=== PATIENT | female | born 1960 | race Caucasian/White ===

== ENCOUNTER 2017-03-26 06:48 | Day surgery (SDC) | payer BC ==
[~2017-03-26 06:48] MED LIST: Lactated Ringers 1,000 ML IV SCH; Lidocaine 1%/Sod Bicarbonate in NS 8.4% 1 ML Syringe PRN; Sodium Chloride 0.9% 10 ML Syringe FLUSH PRN
--- NOTE | 2017-03-26 07:31 | PCM.PREANE ---
Preanesthetic Assessment - Anesthesia/Transfusion/Family Hx Anesthesia History: Prior Anesthesia Without Reaction Family History of Anesthesia Reaction: No Transfusion History: No Prior Transfusion(s) - Review of Systems General: No Symptoms Pulmonary: No Symptoms Cardiovascular: No Symptoms Gastrointestinal: No Symptoms Neurological: No Symptoms Other: Reports: None - Physical Assessment NPO Status Date: 03/25/17 NPO Status Time: 23:00 Pulse: 54 O2 Sat by Pulse Oximetry: 99 Respiratory Rate: 16 Blood Pressure: 139/74 Temperature: 97.8 C Vital Signs: Last Vital Signs Temp 36.6 C 03/26/17 07:00 Pulse 54 L 03/26/17 07:00 Resp 16 03/26/17 07:00 BP 139/74 03/26/17 07:00 Pulse Ox 99 03/26/17 07:00 Height: 1.63 m Weight: 58.967 kg ASA Class: 1 Mental Status: Alert & Oriented x3 Airway Class: Mallampati = 1 Dentition: Reports: Normal Dentition Thyro-Mental Finger Breadths: 3 Mouth Opening Finger Breadths: 3 ROM/Head Extension: Full Lungs: Clear to Auscultation, Normal Respiratory Effort, Crackles Cardiovascular: Regular Rate, Regular Rhythm - Allergies Allergies/Adverse Reactions: Allergies Allergy/AdvReac Type Severity Reaction Status Date / Time Cephalosporins Allergy Swelling Verified 03/25/17 15:47 ciprofloxacin [From Cipro] Allergy Swelling Verified 03/25/17 15:47 ciprofloxacin HCl Allergy Swelling Verified 03/25/17 15:47 [From Cipro] nitrofurantoin Allergy Swelling Verified 03/25/17 15:47 [From Macrobid] nitrofurantoin Allergy Swelling Verified 03/25/17 15:47 macrocrystalline [From Macrobid] Sulfa (Sulfonamide Allergy Swelling Verified 03/25/17 15:47 Antibiotics) - Anesthesia Plan Pre-Op Medication Ordered: None - Acknowledgements Anesthesia Type Planned: MAC Pt an Appropriate Candidate for the Planned Anesthesia: Yes Alternatives and Risks of Anesthesia Discussed w Pt/Guardian: Yes Pt/Guardian Understands and Agrees with Anesthesia Plan: Yes PreAnesthesia Questionnaire HEENT History: Reports: Impaired Vision Gastrointestinal History: Reports: None Genitourinary History: Reports: Urinary Incontinence, UTI, Recurrent 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: Reports: Spontaneous Musculoskeletal History: Reports: Arthritis Other Musculoskeletal History: right upper arm pain Neurological History: Reports: None Psychiatric History: Reports: Depression Endocrine/Metabolic History: Reports: None Hematologic History: Reports: None Immunologic History: Reports: None Oncologic (Cancer) History: Reports: None Dermatologic History: Reports: None - Past Surgical History Head Surgeries/Procedures: Reports: None HEENT Surgical History: Reports: Tonsillectomy Cardiovascular Surgical History: Reports: None Respiratory Surgical History: Reports: None GI Surgical History: Reports: Hernia Repair/Other Female Surgical History: Reports: D&C Endocrine Surgical History: Reports: None Neurological Surgical History: Reports: None Musculoskeletal Surgical History: Reports: Arthroscopic Procedure ((L) knee), Other (See Below) Other Musculoskeletal Surgeries/Procedures:: Left knee arthroscopy Oncologic Surgical History: Reports: None Dermatological Surgical History: Reports: None - SUBSTANCE USE Smoking Status *Q: Never Smoker Recreational Drug Use History: No - HOME MEDS Home Medications: Home Meds Ascorbate Calcium [Vitamin C] 500 mg PO DAILY 03/25/17 [History] Biotin 5 mg PO DAILY 03/25/17 [History] Black Cohosh 40 mg PO BID 03/25/17 [History] Calcium Carbonate [Calcium] 1,200 mg PO DAILY 03/25/17 [History] Cholecalciferol (Vitamin D3) [Vitamin D3] 2,000 unit PO DAILY 03/25/17 [History] Cranberry 400 mg PO DAILY 03/25/17 [History] Estrogens, Conjugated [Premarin Vaginal Crm] 1 applic VAG WEEKLY 03/25/17 [ History] Glucosam/Chond/Hyalu/Cf Borate [Move Free Joint Health Tablet] 1 tab PO DAILY [History] MV,Ca,Min/FA/Herbal No.157 [Estroven Max Strength Caplet] 400 mcg PO DAILY 03/25 [History] Multivitamin with Minerals [Multiple Vitamin] 1 tab PO DAILY 03/25/17 [History] [place]-3/DHA/Epa/Fish Oil [[place] 3 500 Softgel] 1 cap PO DAILY 03/25/17 [History] - CURRENT (IN HOUSE) MEDS Current Meds: Current Medications Lactated Ringer's (Ringers, Lactated) 1,000 mls @ 125 mls/hr IV ASDIRECTED ANDREW Stop: 03/26/17 23:00 Last Admin: 03/26/17 07:15 Dose: 125 mls/hr Lidocaine/Sodium Bicarbonate (Buffered Lidocaine 1% In Ns 8.4%) 0.25 ml .XX ONETIME PRN PRN Reason: Prior to IV Start Stop: 03/26/17 18:00 Last Admin: 03/26/17 07:15 Dose: 0.25 ml Sodium Chloride (Saline Flush) 10 ml FLUSH ASDIRECTED PRN PRN Reason: Keep Vein Open Stop: 03/26/17 18:00 Discontinued Medications Propofol (Diprivan 20 Ml) Confirm Administered Dose 200 mg .ROUTE .STK-MED ONE Stop: 03/26/17 07:35
[2017-03-26] MEDS ORDERED: Propofol 200 MG/20 ML SDV ONE (07:34)
--- NOTE | 2017-03-26 08:02 | PCM.OPNOTE ---
- General Post-Op/Procedure Note Date of Surgery/Procedure: 03/26/17 Operative Procedure(s): Colonoscopy with cold forceps descending colonic polypectomy 1 Findings: 1. Perianal skin tags 2. Internal hemorrhoids 3. Sigmoid diverticulosis 4. Diminutive polyp at 60 cm from the anal verge Pre Op Diagnosis: Screening colonoscopy Post-Op Diagnosis: 1. Perianal skin tags. 2. Internal hemorrhoids. 3. Sigmoid diverticulosis. 4. Diminutive polyp at 60 cm from the anal verge Anesthesia Technique: MAC, Moderate Sedation Primary Surgeon: Raymundo Mcdonald Pathology: Diminutive polyp EBL in mLs: 0 Complications: None Condition: Good Free Text/Narrative:: After adequate IV sedation and analgesia was obtained with monitoring the patient was placed on her left side. Perianal inspection revealed anal tags with internal hemorrhoids. Digital rectal examination was otherwise unremarkable. A lubricated colonoscope was inserted into the rectum and advanced to the cecum without difficulty. The bowel preparation was excellent. The cecum right colon transverse and descending colons were all remarkable for one 5 mm polyp at 60 cm in the descending colon. These areas are otherwise unremarkable for inflammatory changes or mass lesions. I used the cold forceps to remove the polyp which was captured and sent to pathology. The distal descending colon and sigmoid colon were remarkable for a few scattered diverticuli. The rectum in both views was unremarkable. I did see the uncomplicated internal hemorrhoids. Photographs taken for the patient and for the medical record. Air was removed as I finished the procedure which she tolerated well. There were no procedural complications.
--- NOTE | 2017-03-26 08:05 | PCM48HPAN ---
Post Anesthesia Note - EVALUATION WITHIN 48HRS OF ANESTHETIC Vital Signs in Normal Range: Yes Patient Participated in Evaluation: Yes Respiratory Function Stable: Yes Airway Patent: Yes Cardiovascular Function Stable: Yes Hydration Status Stable: Yes Pain Control Satisfactory: Yes Nausea and Vomiting Control Satisfactory: Yes Mental Status Recovered: Yes - COMMENTS/OBSERVATIONS Free Text/Narrative:: Pt awake, rests quietly, no c/o
[2017-03-26 08:09] VITALS: BP 138/83
== END 2017-03-26 08:50 | disposition home or self-care (01) ==
LOC: JD.SDS 06:48
PROVIDERS: ATTEND Surgery
DX: Z12.11 Encounter for screening for malignant neoplasm of colon (principal); K63.5 Polyp of colon; K57.30 Diverticulosis of large intestine without perforation or abscess without bleeding; K64.4 Residual hemorrhoidal skin tags; K64.8 Other hemorrhoids; M19.90 Unspecified osteoarthritis, unspecified site; Z87.440 Personal history of urinary (tract) infections; Z88.1 Allergy status to other antibiotic agents; Z88.2 Allergy status to sulfonamides; Z79.899 Other long term (current) drug therapy; Z90.89 Acquired absence of other organs; Z98.890 Other specified postprocedural states
CPT/HCPCS: 45380; J7120; 00810; J2704

== ENCOUNTER 2021-06-07 18:12 | Emergency (ER) | payer BC ==
[2021-06-07 19:00] VITALS: BP 185/100; PULSE 67
--- NOTE | 2021-06-07 19:15 | EDM.PDOC ---
<Raymundo Alejandro - Last Filed: 06/07/21 19:09> ED HPI GENERAL MEDICAL PROBLEM - General Chief Complaint: General Stated Complaint: NAUSEA/NECK PAIN Time Seen by Provider: 06/07/21 19:08 - Related Data Allergies Allergy/AdvReac Type Severity Reaction Status Date / Time Cephalosporins Allergy Swelling Verified 03/25/17 15:47 ciprofloxacin [From Cipro] Allergy Swelling Verified 03/25/17 15:47 ciprofloxacin HCl Allergy Swelling Verified 03/25/17 15:47 [From Cipro] nitrofurantoin Allergy Swelling Verified 03/25/17 15:47 [From Macrobid] nitrofurantoin Allergy Swelling Verified 03/25/17 15:47 macrocrystalline [From Macrobid] Sulfa (Sulfonamide Allergy Swelling Verified 03/25/17 15:47 Antibiotics) Home Meds: Home Meds Ascorbate Calcium [Vitamin C] 500 mg PO DAILY 03/25/17 [History] Biotin 5 mg PO DAILY 03/25/17 [History] Black Cohosh 40 mg PO BID 03/25/17 [History] Calcium Carbonate [Calcium] 1,200 mg PO DAILY 03/25/17 [History] Cholecalciferol (Vitamin D3) [Vitamin D3] 2,000 unit PO DAILY 03/25/17 [History] Cranberry 400 mg PO DAILY 03/25/17 [History] Estrogens, Conjugated [Premarin Vaginal Crm] 1 applic VAG WEEKLY 03/25/17 [History] Glucosam/Chond/Hyalu/Cf Borate [Move Free Joint Health Tablet] 1 tab PO DAILY 03/25/17 [History] MV,Ca,Min/FA/Herbal No.157 [Estroven Max Strength Caplet] 400 mcg PO DAILY 12/04 [History] Multivitamin with Minerals [Multiple Vitamin] 1 tab PO DAILY 03/25/17 [History] [place]-3/DHA/Epa/Fish Oil [[place] 3 500 Softgel] 1 cap PO DAILY 03/25/17 [History] Ondansetron [Zofran ODT] 4 mg PO Q6H PRN #20 tab.dis 06/07/21 [Rx] Past Medical History HEENT History: Reports: Impaired Vision Cardiovascular History: Reports: None Respiratory History: Reports: None Gastrointestinal History: Reports: None Genitourinary History: Reports: Urinary Incontinence, UTI, Recurrent 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 Musculoskeletal History: Reports: Arthritis Other Musculoskeletal History: right upper arm pain Neurological History: Reports: None Psychiatric History: Reports: Depression Endocrine/Metabolic History: Reports: None Hematologic History: Reports: None Immunologic History: Reports: None Oncologic (Cancer) History: Reports: None Dermatologic History: Reports: None - Past Surgical History Head Surgeries/Procedures: Reports: None HEENT Surgical History: Reports: Tonsillectomy Cardiovascular Surgical History: Reports: None Respiratory Surgical History: Reports: None GI Surgical History: Reports: Hernia Repair/Other Female Surgical History: Reports: D&C Endocrine Surgical History: Reports: None Neurological Surgical History: Reports: None Musculoskeletal Surgical History: Reports: Arthroscopic Procedure ((L) knee), Other (See Below) Other Musculoskeletal Surgeries/Procedures:: Left knee arthroscopy Oncologic Surgical History: Reports: None Dermatological Surgical History: Reports: None Social & Family History - Caffeine Use Caffeine Use: Reports: None Departure - Departure Disposition: Home, Self-Care 01 Clinical Impression: COVID-19 - Discharge Information Prescriptions: Ondansetron [Zofran ODT] 4 mg PO Q6H PRN #20 tab.dis PRN Reason: Nausea/Vomiting Referrals: PCP,None [Primary Care Provider] - Forms: ED Department Discharge Additional Instructions: You were seen in the emergency department this evening with worsening Covid symptoms. Lab studies were completed and were essentially unremarkable. You did not appear dehydrated. Chest x-ray was unremarkable. You did receive a liter of IV fluids as well as nausea medication and pain medication. Recommend that you go home and rest and drink plenty of fluids. Eat small frequent meals. Take the Zofran tab for nausea every [address] the tablet under your tongue and allow it to dissolve and then wait approximately 30 minutes prior to eating or drinking. Also recommend that you take ibuprofen 600 mg every 6-8 hours as needed for body aches or headache. Be sure to take this medication with food as it can cause stomach upset. Recommend follow-up with your primary care provider in about 1 week for reevaluation. Sepsis Event Note (ED) - Evaluation Sepsis Screening Result: No Definite Risk <Arya Garza - Last Filed: 06/07/21 22:17> ED HPI GENERAL MEDICAL PROBLEM - General Source of Information: Reports: Patient History Limitations: Reports: No Limitations - History of Present Illness INITIAL COMMENTS - FREE TEXT/NARRATIVE: 60-year-old female appears the emergency department with lingering Covid symptoms. Patient states she developed Covid type symptoms on May 22, 2021. She states she had generalized body aches, fever, chills, nausea, vomiting and diarrhea. She also complains of headache, shortness of breath and cough associated with it. She states she never actually went to get tested because her had similar symptoms and did test positive for Covid. She states he came off of quarantine yesterday. She states symptoms are slowly resolving however she has still had nausea, vomiting and a severe headache located at the base of her skull. She states she has been taking Tylenol to abort the headache however is having a difficult time keeping it down due to the nausea and vomiting. She states she saw her chiropractor today and he did adjust her neck however it has not helped at all. Patient states she is otherwise healthy. She has not had her Covid vaccine. ED ROS GENERAL - Review of Systems Review Of Systems: Comprehensive ROS is negative, except as noted in HPI. ED EXAM, GENERAL - Physical Exam Exam: See Below Exam Limited By: No Limitations General Appearance: Alert, WD/WN, Mild Distress Ears: Normal External Exam, Hearing Grossly Normal Nose: Normal Inspection Throat/Mouth: Normal Inspection, Normal Lips, Normal Voice, No Airway Compromise Head: Atraumatic, Normocephalic Neck: Normal Inspection, Supple, Non-Tender, Full Range of Motion Respiratory/Chest: No Respiratory Distress, Lungs Clear, Normal Breath Sounds, No Accessory Muscle Use, Chest Non-Tender Cardiovascular: Normal Peripheral Pulses, Regular Rate, Rhythm, No Edema, No Murmur Peripheral Pulses: 2+: Radial (L), Radial (R) GI/Abdominal: Normal Bowel Sounds, Soft, Non-Tender, No Distention (Female) Exam: Deferred Rectal (Female) Exam: Deferred Back Exam: Normal Inspection Extremities: Normal Inspection, Normal Range of Motion, Non-Tender, No Pedal Edema, Normal Capillary Refill Neurological: Alert, Oriented, Normal Cognition Psychiatric: Normal Affect, Normal Mood Skin Exam: Warm, Dry, Intact, Normal Color, No Rash Lymphatic: No Adenopathy Course - Vital Signs Text/Narrative:: As noted above, patient presents with lingering Covid-like symptoms. Lungs are slightly diminished on physical exam. Abdomen is soft and nontender bowel tones are positive. Patient is hemodynamically stable and O2 saturations are 97% on room air. Will obtain lab studies to include a CBC, CMP, magnesium, D-dimer and a C-reactive protein. We will also obtain a chest x-ray. Patient will be given 1 L of normal saline due to the fact that she states she has been unable to keep any food or fluids down, Zofran and Toradol. Last Recorded V/S: Last Vital Signs Temp 98.1 F 06/07/21 18:49 Pulse 67 06/07/21 18:49 Resp 16 06/07/21 18:49 BP 185/100 H 06/07/21 18:49 Pulse Ox 97 06/07/21 18:49 - Orders/Labs/Meds Orders: Active Orders 24 hr Category Date Time Status Chest 1V Frontal [CR] Stat Exams 06/07/21 19:28 Taken Sodium Chloride 0.9% [Saline Flush] Med 06/07/21 19:28 Active 10 ml FLUSH ASDIRECTED PRN Saline Lock Insert [OM.PC] Stat Oth 06/07/21 19:28 Ordered Medication Orders Sodium Chloride (Sodium Chloride 0.9% 10 Ml Syringe) 10 ml FLUSH ASDIRECTED PRN PRN Reason: Keep Vein Open Last Admin: 06/07/21 19:39 Dose: 10 ml Documented by: MICHA Labs: Laboratory Tests 06/07/21 06/07/21 06/07/21 Range/Units 19:30 19:30 19:30 WBC 5.35 (3.98-10.04) K/mm3 RBC 4.01 (3.98-5.22) M/mm3 Hgb 12.4 (11.2-15.7) gm/dl Hct 37.4 (34.1-44.9) % MCV 93.3 (79.4-94.8) fl MCH 30.9 (25.6-32.2) pg MCHC 33.2 (32.2-35.5) g/dl RDW Std Deviation 43.6 (36.4-46.3) fL Plt Count 428 H (182-369) K/mm3 MPV 8.5 L (9.4-12.3) fl Neut % (Auto) 55.6 (34.0-71.1) % Lymph % (Auto) 32.0 (19.3-51.7) % [place] % (Auto) 10.7 (4.7-12.5) % Eos % (Auto) 1.1 (0.7-5.8) Baso % (Auto) 0.4 (0.1-1.2) % Neut # (Auto) 2.98 (1.56-6.13) K/mm3 Lymph # (Auto) 1.71 (1.18-3.74) K/mm3 [place] # (Auto) 0.57 H (0.24-0.36) K/mm3 Eos # (Auto) 0.06 (0.04-0.36) K/mm3 Baso # (Auto) 0.02 (0.01-0.08) K/mm3 D-Dimer, Quantitative 0.47 (0.19-0.50) mg/L Sodium 136 (136-145) mEq/L Potassium 3.8 (3.5-5.1) mEq/L Chloride 98 (98-107) mEq/L Carbon Dioxide 29 (21-32) mEq/L Anion Gap 12.8 (5-15) BUN 8 (7-18) mg/dL Creatinine 0.7 (0.55-1.02) mg/dL Est Cr Clr Drug Dosing 72.88 mL/min Estimated GFR (MDRD) > 60 (>60) mL/min BUN/Creatinine Ratio 11.4 L (14-18) Glucose 100 H (70-99) mg/dL Calcium 9.1 (8.5-10.1) mg/dL Magnesium 1.8 (1.8-2.4) mg/dL Total Bilirubin 0.5 (0.2-1.0) mg/dL AST 24 (15-37) U/L ALT 31 (14-59) U/L Alkaline Phosphatase 126 H (46-116) U/L C-Reactive Protein 1.0 (<1.0) mg/dL Total Protein 7.6 (6.4-8.2) g/dl Albumin 3.6 (3.4-5.0) g/dl Globulin 4.0 gm/dL Albumin/Globulin Ratio 0.9 L (1-2) Meds: Medications Generic Name Dose Route Start Last Admin Trade Name Freq PRN Reason Stop Dose Admin Sodium Chloride 10 ml 06/07/21 19:28 06/07/21 19:39 Sodium Chloride 0.9% 10 Ml Syringe FLUSH 10 ml ASDIRECTED PRN Administration Keep Vein Open Discontinued Medications Generic Name Dose Route Start Last Admin Trade Name Perezq PRN Reason Stop Dose Admin Sodium Chloride 1,000 mls @ 999 mls/hr 06/07/21 19:28 06/07/21 19:37 Normal Saline IV 06/07/21 20:28 999 mls/hr ONETIME ONE Administration Ketorolac Tromethamine 30 mg 06/07/21 19:28 06/07/21 19:38 Ketorolac 30 Mg/Ml Sdv IVPUSH 06/07/21 19:29 30 mg ONETIME ONE Administration Metoclopramide HCl 5 mg 06/07/21 20:37 06/07/21 20:59 Metoclopramide 10 Mg/2 Ml Sdv IVPUSH 06/07/21 20:38 5 mg ONETIME ONE Administration Ondansetron HCl 4 mg 06/07/21 19:28 06/07/21 19:37 Ondansetron 4 Mg/2 Ml Sdv IVPUSH 06/07/21 19:29 4 mg ONETIME ONE Administration - Re-Assessments/Exams Free Text/Narrative Re-Assessment/Exam: 06/07/21 20:28 Hemotology is essentially unremarkable, coagulation reveals a D-dimer of 0.47, chemistry reveals a sodium of 136, potassium 3.8, anion gap 12.8, BUN 8, creatinine 0.7, glucose 100, magnesium 1.8, C-reactive protein 1.0 Questionable areas of infiltrate noted to bilateral lower lobes on portable view of the chest. Formal radiologist report is pending. 06/07/21 20:43 Patient states her nausea is slightly better and headache pain is decreased however she is still having discomfort. Discussed at length that she likely will have the discomfort for some time due to Covid. We will give the patient Reglan 5 mg IV to see if we can get the nausea better under control. We will then likely discharge patient to home. 06/07/21 22:12 Patient states her nausea is significantly better. She will be discharged home with a prescription for Zofran. Departure - Departure Time of Disposition: 22:14 Condition: Good Sepsis Event Note (ED) - Focused Exam Vital Signs: Vital Signs Temp Pulse Resp BP Pulse Ox 06/07/21 18:49 98.1 F 67 16 185/100 H 97 - My Orders Last 24 Hours: My Active Orders 06/07/21 19:28 Chest 1V Frontal [CR] Stat Sodium Chloride 0.9% [Saline Flush] 10 ml FLUSH ASDIRECTED PRN Saline Lock Insert [OM.PC] Stat - Assessment/Plan Last 24 Hours: My Active Orders 06/07/21 19:28 Chest 1V Frontal [CR] Stat Sodium Chloride 0.9% [Saline Flush] 10 ml FLUSH ASDIRECTED PRN Saline Lock Insert [OM.PC] Stat
[2021-06-07] MEDS ORDERED: Ketorolac 30 MG/ML SDV IVPUSH ONE (19:28)
[2021-06-07] MEDS ORDERED: Sodium Chloride 0.9% 10 ML Syringe FLUSH PRN (19:28)
[2021-06-07] MEDS ORDERED: Sodium Chloride 0.9% 1,000 ML IV ONE (19:28)
[2021-06-07] MEDS ORDERED: Ondansetron 4 MG/2 ML SDV IVPUSH ONE (19:28)
[2021-06-07] MEDS ORDERED: Metoclopramide 10 MG/2 ML SDV IVPUSH ONE (20:37)
[2021-06-07] MEDS ORDERED: Ondansetron 4 MG Tab.DIS PO ONE (22:12)
--- NOTE | 2021-06-08 05:55 | CR ---
Chest: Portable view of the chest was obtained. Comparison: No prior chest imaging is available. Heart size and mediastinum are within normal limits. Lungs are clear with no acute parenchymal change. Resection of the distal left clavicle is noted. Impression: 1. Nothing acute is seen on portable chest x-ray. Diagnostic code #1
== END 2021-06-07 22:37 | disposition home or self-care (01) ==
LOC: JD.ED 18:12
DX: U07.1 COVID-19 (principal); Z88.2 Allergy status to sulfonamides; Z88.1 Allergy status to other antibiotic agents
CPT/HCPCS: 36415; 71045; 80053; 83735; 85025; 85379; 86140; 96374; 96375; 99284; A9270; J1885; J2405; J2765; J7030